=== PATIENT | female | born 1985 | race Caucasian/White ===

== ENCOUNTER 2017-03-09 12:39 | Inpatient (IN) | payer OTHER ==
[2017-03-09] MEDS ORDERED: Buffered Lidocaine 0.9% SYRIN* 5 ML/SYR SYRINGE ONE (18:44)
[2017-03-09 19:11] LABS: Hematocrit 31 % (35-47); Hemoglobin 10.6 g/dl (12.0-16.0); Mean Corpuscular HGB Conc 34 g/dl (31-36); Mean Corpuscular Hemoglobin 27 pg (27-31); Mean Corpuscular Volume 79 fL (80-97); Mean Platelet Volume 8 um3 (7.4-10.4); Red Blood Count 3.98 10^6/ul (4.0-5.4); Red Cell Distribution Width 13 % (10.5-15); White Blood Count 11.5 10^3/ul (3.5-10.8)
[2017-03-09] MEDS ORDERED: Oxytocin in LR* 20 UNITS/1,000 ML BAG IVPB SCH (23:00)
[2017-03-09] MEDS ORDERED: Oxytocin in LR* 20 UNITS/1,000 ML BAG IVPB ONE (23:09)
[2017-03-10] MEDS ORDERED: Dibucaine 1% 28.35 GM TUBE PR PRN (01:47)
[2017-03-10] MEDS ORDERED: Acetaminophen TAB* 325 MG PO PRN (01:47)
[2017-03-10] MEDS ORDERED: Glycerin ADULT SUPP PR PRN (01:47)
[2017-03-10] MEDS ORDERED: Measles, Mumps,Rubella VACC* 0.5 ML/VIAL SUBCUT ONE (01:47)
[2017-03-10] MEDS ORDERED: Witch Hazel PAD* JAR TOPICAL PRN (01:47)
[2017-03-10] MEDS: Ibuprofen TAB* 600 MG PO PRN ×3 (03:08→19:58)
[2017-03-10] MEDS: Docusate CAP* 100 MG PO SCH ×3 (08:44→20:34)
[2017-03-10] MEDS: Simethicone CHEW TAB* 80 MG PO SCH ×3 (08:45→17:30)
[2017-03-11] MEDS: Ibuprofen TAB* 600 MG PO PRN (07:26)
[2017-03-11 08:18] VITALS: BP 97/61
[2017-03-11 08:49] LABS: Hematocrit 35 % (35-47); Hemoglobin 11.4 g/dl (12.0-16.0); Mean Corpuscular HGB Conc 33 g/dl (31-36); Mean Corpuscular Hemoglobin 27 pg (27-31); Mean Corpuscular Volume 80 fL (80-97); Mean Platelet Volume 8 um3 (7.4-10.4); Red Cell Distribution Width 14 % (10.5-15); White Blood Count 9.9 10^3/ul (3.5-10.8)
[2017-03-11] MEDS ORDERED: Ferrous Gluconate TAB* 324 MG TAB PO SCH (09:00)
[2017-03-11] MEDS: Docusate CAP* 100 MG PO SCH (09:08)
[2017-03-11] MEDS ORDERED: Influenza VAC *QUAD* 2017-18* 0.5 ML SYRINGE IM ONE (09:55)
== END 2017-03-11 13:49 | disposition home or self-care (01) | DRG 560 ==
LOC: MCHOBOUT 12:39 → MCHOB 17:23
PROVIDERS: ADMIT Midwife; ATTEND Midwife
PROC: 4A1HX4Z Monitoring of Products of Conception, Cardiac Electrical Activity, External Approach (ICD-10-PCS; principal; 2017-03-09)
PROC: 10E0XZZ Delivery of Products of Conception, External Approach (ICD-10-PCS; 2017-03-09)
PROC: 10907ZC Drainage of Amniotic Fluid, Therapeutic from Products of Conception, Via Natural or Artificial Opening (ICD-10-PCS; 2017-03-09)
DX: O71.82 Other specified trauma to perineum and vulva (principal); Z88.2 Allergy status to sulfonamides; Z3A.39 39 weeks gestation of pregnancy; Z37.0 Single live birth
CPT/HCPCS: 36415; 85025; 86850; 86900; 86901; 90686; 90707; A9270-GY

== ENCOUNTER 2019-08-20 12:38 | Emergency (ER) | payer BC, OTHER ==
[2019-08-20] MEDS ORDERED: NS 0.9% 1000 ML** 1,000 ML IV ONE (12:46)
--- NOTE | 2019-08-20 12:52 | ED ---
Syncope/Near Syncope - HPI Summary HPI Summary: The patient is a 33 y/o F arriving via ambulance to [facility] with a cc of multiple syncopal episodes last night and lightheadedness now. She reports that she was feeling well yesterday until last night when she thought she heard her baby getting up so she got out of bed and then had a syncopal episode. During the episode, she hit the posterior head on hardwood floor. Throughout the night, she had two more syncopal episodes, as she was told by her . She also was very nauseous last night and into this morning. She went to her PCPs office this morning where they found her to by hypotensive. EMS reports VSS; normotensive, sinus bradycardia, BG 97. In the ED, the patient is suffering from a frontal and right parietal headache and lightheadedness but no nausea. Symptoms rated 5/10 in severity. PMHx: anemia. FHx: hypertension. Nonsmoker, no EtOH, no substance use. Medications reviewed. Allergies noted. Home Medications Medication Instructions Recorded Confirmed Type Ibuprofen TAB* [Motrin TAB* 600 MG] 600 mg PO Q6H PRN #0 tab 03/11/17 08/20/19 Rx Norethindrone [Deblitane] 0.35 mg PO DAILY 08/20/19 08/20/19 History Sertraline* [Zoloft*] 50 mg PO DAILY 08/20/19 08/20/19 History - History Of Current Complaint Hx Obtained From: Patient, EMS Onset/Duration: Lasting Hours, Other - no syncopal episose this morning although lightheadedness still present Timing: Frequency Of Episodes - 3 Context: Loss Of Consciousness Activity At Onset: At Rest Associated Head Trauma: Yes Aggravating Factor(s): Nothing Alleviating Factor(s): Nothing Associated Signs And Symptoms: Headache - frontal, parietal, Lightheadedness, Other - nausea (resolved) - Allergies/Home Medications Allergies/Adverse Reactions: Allergies Allergy/AdvReac Type Severity Reaction Status Date / Time Sulfa (Sulfonamide Allergy Hives/Diff. Verified 08/20/19 12:55 Antibiotics) Breathing/I tching Home Medications: Home Medications Ibuprofen TAB* [Motrin TAB* 600 MG] 600 mg PO Q6H PRN #0 tab 03/11/17 [Rx Confirmed 08/20/19] Norethindrone [Deblitane] 0.35 mg PO DAILY 08/20/19 [History Confirmed 08/20/19] Sertraline* [Zoloft*] 50 mg PO DAILY 08/20/19 [History Confirmed 08/20/19] PMH/Surg Hx/FS Hx/Imm Hx Endocrine/Hematology History: Reports: Hx Anemia - HX OF Denies: Hx Diabetes Cardiovascular History: Denies: Hx Hypertension History: Denies: Hx Renal Disease Sensory History: Reports: Hx Contacts or Glasses - GLASSES Denies: Hx Hearing Aid Opthamlomology History: Reports: Hx Contacts or Glasses - GLASSES - Surgical History Surgical History: Yes Surgery Procedure, Year, and Place: S/P D&C earlier this year 2015 Hx Anesthesia Reactions: No Infectious Disease History: Denies: Hx Clostridium Difficile, Hx Hepatitis, Hx Human Immunodeficiency Virus (HIV), Hx of Known/Suspected MRSA, Hx Shingles, Hx Tuberculosis, Hx Known/ Suspected VRE, Hx Known/Suspected VRSA, History Other Infectious Disease - Family History Known Family History: Positive: Hypertension - mother - Social History Alcohol Use: None Hx Substance Use: No Substance Use Type: Reports: None Hx Tobacco Use: No Smoking Status (MU): Never Smoked Tobacco Have You Smoked in the Last Year: No Review of Systems Positive: Nausea - resolved Neurological/Mental Status: Other - lightheadedness Positive: Headache - frontal, parietal, Syncope All Other Systems Reviewed And Are Negative: Yes Physical Exam - Summary Physical Exam Summary: Constitutional: Well-developed, Well-nourished, Alert. (-) Distressed Skin: Warm, Dry HENT: Tenderness over the right parietal scalp; Atraumatic Eyes: Conjunctiva normal Neck: Musculoskeletal ROM normal neck. (-) C-spine tenderness, (-) JVD, (-) Stridor, (-) Nuchal rigidity Cardio: Rhythm regular, rate normal, Heart sounds normal; Intact distal pulses; Radial pulses are 2+ and symmetric. (-) Murmur Pulmonary/Chest wall: Effort normal. (-) Respiratory distress, (-) Wheezes, (-) Rales Abd: Soft, (-) tenderness, (-) Distension, (-) Guarding, (-) Rebound Musculoskeletal: (-) Edema Lymph: (-) Cervical adenopathy Neuro: Alert, Oriented x3, GCS 15 Psych: Mood and affect Normal Triage Information Reviewed: Yes Vital Signs Reviewed: Yes - Anastasia Coma Scale Best Eye Response: 4 - Spontaneous Best Motor Response: 6 - Obeys Commands Best Verbal Response: 5 - Oriented Coma Scale Total: 15 Procedures - Sedation Patient Received Moderate/Deep Sedation with Procedure: No Diagnostics - Laboratory Result Diagrams: 08/20/19 12:56 08/20/19 12:56 Lab Statement: Any lab studies that have been ordered have been reviewed, and results considered in the medical decision making process. - CT Brain CT CT Interpretation Completed By: Radiologist Summary of CT Findings: Impression: 1. No acute intracranial abnormality. ED physician has reviewed this report. - EKG 1253 Cardiac Rate: NL - 70 BPM EKG Rhythm: Sinus Rhythm EKG Comparison: No Significant Change - Similar to previous EKG taken at PCP's office today. Summary of EKG Findings: An EKG at 1253 reveals normal sinus rhythm at rate of 70 BPM, T wave flattening in V2. No STEMI. Similar to previous EKG taken at PCP' s office today. ED physician has reviewed and interpreted this EKG. Re-Evaluation - Re-Evaluation First Eval Re-Evaluation Time: 13:55 Comment: Discussed results and plan for d/c Course/Dx Course Of Treatment: 33 y/o F p/w syncopal episode: Syncope. DDx: most likely initially orthostatic (rising out of bed). Seizure: no witnessed seizure activity, incontinence or h/o seizures to suggest seizure today. Hypoxia and hypoglycemia less likely in this patient with normal sats and BG. Cardiac issue : electrical (dysarrhythmias, brugada, WPW, long QT). Less likely given no evidence of drop attack, no palpitations, no EKG findings to predispose to arrhythmias. No CP, no STEMI on EKG. Reviewed EKG at PCP. Vessels: PE, dissection, AAA. Clinical picture inconsistent, no abd pain, no pulsatile mass, symmetric pulses, no risk factors of PE (Perc neg). Volume issue: dehydration from vomiting/diarrhea/decreased PO, sepsis, GI bleed, ruptured ectopic or bleeding AAA. No signs of recent illness to suggest infection, no e/o anemia by history or PE, neg preg test neg so unlikely ectopic. Neuro: No OCHOA, no personal or family h/o cerebral aneurysm, nml neuro exam, CT head negative. Also: vasovagal, drugs/meds, autonomic insufficiency - Diagnoses Provider Diagnoses: Syncope, Concussion - Physician Notifications Discussed Care of Patient With: Shae at PCP Time Discussed With Above Provider: 14:40 Instructed by Provider To: Other - I spoke with Shae at the patient's primary office, who wanted the patient to come in for repeated syncope and blood work. We discussed results, and she is comfortable with the patient being discharged. Discharge ED - Sign-Out/Discharge Documenting (check all that apply): Patient Departure - Patient will be discharged home. - Discharge Plan Condition: Stable Disposition: HOME Patient Education Materials: Syncope (DC), Concussion (ED) Referrals: Ramirez Carrillo MD [Medical Doctor] - 3 Days Additional Instructions: You were seen in the emergency department for passing out. Your head CT showed no abnormalities. Your lab results are unremarkable. Please drink lots of fluids. You can take Tylenol or motrin for pain. Please follow up with your primary care doctor in next 2-3 days and return to emergency department for worsening headaches, passing out, confusion or concerning symptoms. It was a pleasure taking care of you today. - Billing Disposition and Condition Condition: STABLE Disposition: Home - Attestation Statements Document Initiated by Lois: Yes Documenting Scribe: Batsheva Llamas Provider For Whom Lois is Documenting (Include Credential): Dr. Ramon Stewart MD Scribe Attestation: Batsheva Bui scribed for Dr. Ramon Stewart MD on 08/20/19 at 1523. Scribe Documentation Reviewed: Yes Provider Attestation: The documentation as recorded by the Batsheva newman accurately reflects the service I personally performed and the decisions made by me, Dr. Ramon Stewart MD Status of Scribe Document: Viewed
--- OUTSIDE RECORDS SUMMARY | 2019-08-20 13:10 | XMS REPORT | Continuity of Care Document ---
:1985 External Reference #:[id number] Author Name Lb Alvarenga MD Address [address] [place] [address] Care Team Providers Name Role Phone Lb Alvarenga MD - Family Care Team Information Exceptional Needs Teacher Medicine Problems Active Problems Provider Date Moderate recurrent major depression Laura Perez NP Onset: 10/17/2018 Anxiety state Laura Perez NP Onset: 10/17/2018 Social History Type Date Description Comments Sex Unknown ETOH Use Rare Tobacco Use Start: Unknown Patient has never smoked Recreational Drug Use Never Used Drugs Smoking Status Reviewed: 08/09/19 Patient has never smoked Exercise Type/Frequency Yoga 3-4 times a week Allergies, Adverse Reactions, Alerts Active Allergies Reaction Severity Comments Date Sulfa Difficulty breathing, Itching, rash 10/17/2018 Medications Active Medications SIG Qnty Indications Ordering Provider Date Sertraline HCL 1 by mouth 90tabs F41.9 Vidhya Elvia 10/17/2018 50mg every day Green, [employer] Tablets Deblitane 1 by mouth Unknown 0.35mg Tablets every day Immunizations Description No Information Available Vital Signs Date Vital Result Comment 08/09/2019 10:19am BP Systolic 80 mmHg BP Diastolic 50 mmHg Heart Rate 72 /min Body Temperature 98.4 F Height 61.5 inches 5'1.50" Weight 125.00 lb BMI (Body Mass Index) 23.2 kg/m2 01/15/2019 11:00am BP Systolic 110 mmHg BP Diastolic 50 mmHg Heart Rate 56 /min Body Temperature 98.1 F Respiratory Rate 16 /min Height 62 inches 5'2" Weight 126.38 lb BMI (Body Mass Index) 23.1 kg/m2 Results Description No Information Available Procedures Description No Information Available Medical Devices Description No Information Available Encounters Description No Information Available Assessments Date Code Description Provider 08/09/2019 Z00.00 Encounter for general adult medical Lb Alvarenga MD examination without abnormal findings Plan of Treatment Future Appointment(s):08/16/2019 8:30 am - Lb Alvarenga MD at [facility]08/09/2019 - Lb Alvarenga MDZ00.00 Encounter for general adult medical examination without abnormal findingsNew Labs:CBC Electronic-ALL [facility], Ordered: 08/09/19Comp Metabolic-ALL [facility], Ordered: 08/09/19Lipid Panel-[facility], Ordered: 08/09/19TS ([facility]/ [facility]), Ordered: 08/09/19AllComments:Medication Management Patient Understands medications she's taking? Yes No Are there Barriers to Adherence? Yes No Has the patient been asked about herbal supplements and therapies, and OTC meds? Yes No Functional Status Description No Information Available Mental Status Description No Information Available Referrals Description No Information Available
[2019-08-20 13:14] LABS: ABS Eosinophils 0.1 10^3/ul (0-0.6); ABS Lymphocytes 1.5 10^3/ul (1.0-4.8); ABS Monocytes 0.4 10^3/ul (0-0.8); ABS Neutrophils 4.1 10^3/ul (1.5-7.7); Eosinophil % 1.4 %; Hematocrit 39 % (35-47); Hemoglobin 13.4 g/dL (12.0-16.0); Lymphocyte % 24.5 %; Mean Corpuscular HGB Conc 35 g/dL (31-36); Mean Corpuscular Hemoglobin 30 pg (27-31); Mean Corpuscular Volume 88 fL (80-97); Mean Platelet Volume 8.1 fL (7.4-10.4); Platelet Count 254 10^3/uL (150-450); Red Blood Count 4.43 10^6 /uL (3.70-4.87); Red Cell Distribution Width 13 % (10-15); White Blood Count 6.1 10^3/uL (3.5-10.8)
[2019-08-20 13:47] LABS: HCG Pregnancy < 0.60 mIU/mL
[2019-08-20 13:48] LABS: ALT 10 U/L (7-52); AST 16 U/L (13-39); Albumin 4.6 g/dL (3.2-5.2); Albumin/Globulin Ratio 1.8 (1-3); Alkaline Phosphatase 37 U/L (34-104); Anion Gap 7 mmol/L (2-11); Blood Urea Nitrogen 15 mg/dL (6-24); CO2 Carbon Dioxide 27 mmol/L (22-32); Calcium 9.5 mg/dL (8.6-10.3); Chloride 105 mmol/L (101-111); EGFR African American 140.2 (>60); EGFR Non-African American 115.9 (>60); Globulin 2.5 g/dL (2-4); Glucose 83 mg/dL (70-100); Potassium 3.7 mmol/L (3.5-5.0); Sodium 139 mmol/L (135-145); Total Protein 7.1 g/dL (6.4-8.9)
[2019-08-20] MEDS ORDERED: Ketorolac INJ* 30 MG/ML 1 ML VIAL IV ONE (14:10)
[2019-08-20] MEDS ORDERED: Metoclopramide IV* 5 MG/ML 2 ML VIAL IV SLOW PU ONE (14:10)
[2019-08-20 14:19] VITALS: BP 111/67
== END 2019-08-20 14:05 | disposition home or self-care (01) ==
LOC: ED 12:38
DX: S06.0X1A Concussion with loss of consciousness of 30 minutes or less, initial encounter (principal); R55 Syncope and collapse; R51 Headache; R42 Dizziness and giddiness; W19.XXXA Unspecified fall, initial encounter; Y92.9 Unspecified place or not applicable; Z88.2 Allergy status to sulfonamides; Z79.899 Other long term (current) drug therapy
CPT/HCPCS: 36415; 70450; 80053; 84702; 85025; 93005; 96361; 96374; 96375; 99284; J1885; J2765

== ENCOUNTER 2022-02-21 16:32 | Inpatient (IN) ==
[2022-02-21] MEDS ORDERED: Labetalol IV 5 MG/ML 20 ml VIAL IV PUSH ONE ×2 (18:10→21:01)
[2022-02-21 18:20] LABS: Hematocrit 28 % (35-47); Hemoglobin 8.9 g/dL (12.0-16.0); Mean Corpuscular HGB Conc 32 g/dL (31-36); Mean Corpuscular Hemoglobin 24 pg (27-31); Mean Corpuscular Volume 74 fL (80-97); Mean Platelet Volume 8.2 fL (7.4-10.4); Platelet Count 315 10^3/uL (150-450); Red Blood Count 3.76 10^6 /uL (3.70-4.87); Red Cell Distribution Width 16 % (10-15)
[2022-02-21 18:35] LABS: ALT 37 U/L (7-52); Albumin 3.9 g/dL (3.2-5.2); Albumin/Globulin Ratio 1.3 (1-3); Alkaline Phosphatase 128 U/L (35-149); Blood Urea Nitrogen 10 mg/dL (6-24); CO2 Carbon Dioxide 23 mmol/L (22-32); Calcium 8.6 mg/dL (8.6-10.3); Chloride 105 mmol/L (101-111); Globulin 2.9 g/dL (2-4); Glucose 82 mg/dL (70-100); Sodium 139 mmol/L (135-145); Total Protein 6.8 g/dL (6.4-8.9); eGFR CKD-EPI 123.6 (>60)
[2022-02-21 18:37] LABS: Anion Gap 11 mmol/L (2-11)
[2022-02-21 19:53] LABS: Phosphorus 4.1 mg/dL (2.5-5.0); Potassium Redraw 4.1 mmol/L (3.5-5.0)
[2022-02-21] MEDS ORDERED: Calcium Gluconate 1 GM/10 ML VIAL (in Pyxis) IV PUSH PRN (20:15)
[2022-02-21] MEDS ORDERED: Magnesium Sulfate OB PREMIX 4 GM/100 ML BAG IV ONE (20:16)
[2022-02-21] MEDS ORDERED: Magnesium Sulfate OB PREMIX 40 GM/1,000 ML BAG IVPB SCH (21:00)
[2022-02-21] MEDS ORDERED: hydrALAZINE 20 mg/ml 1 ML Vial IV IV SLOW PU PRN (21:05)
[2022-02-21] MEDS ORDERED: Ondansetron 4 mg VIAL 2 MG/ML 2 ml VIAL IV PRN (22:32)
[2022-02-21 22:39] LABS: ABS Eosinophils 0.2 10^3/ul (0-0.6); ABS Lymphocytes 1.8 10^3/ul (1.0-4.8); ABS Monocytes 0.5 10^3/ul (0-0.8); ABS Neutrophils 4.5 10^3/ul (1.5-7.7); Eosinophil % 2.4 %; Lymphocyte % 25.7 %; Nucleated Red Blood Cells % 0.1
[2022-02-21 22:40] LABS: Anisocytosis 1+; Microcytosis 2+; Polychromasia 1+
[2022-02-22 00:16] LABS: Urine Appearance Clear; Urine Bilirubin Negative (Negative); Urine Color Yellow; Urine Glucose Negative (Negative); Urine Ketones Negative (Negative); Urine Nitrite Negative (Negative); Urine Protein Negative (Negative); Urine Urobilinogen 0.2 (Negative) (Negative)
[2022-02-22 00:32] LABS: Urine Bacteria Absent (Absent); Urine Red Blood Cell 1+(3-5/hpf) (Absent); Urine Squamous Epithelial Cell Present (Absent); Urine White Blood Cell Trace(0-5/hpf) (Absent)
[2022-02-22 05:18] LABS: Albumin 3.7 g/dL (3.2-5.2); Albumin/Globulin Ratio 1.4 (1-3); Direct Bilirubin 0.1 mg/dL (0.03-0.18); Globulin 2.6 g/dL (2-4); Indirect Bilirubin 0.7 mg/dL (0.3-1.0); Potassium 3.7 mmol/L (3.5-5.0); Total Bilirubin 0.8 mg/dL (0.2-1.0); Total Protein 6.3 g/dL (6.4-8.9)
[2022-02-22 05:19] LABS: Calcium 8.3 mg/dL (8.6-10.3); Magnesium 4.3 mg/dL (1.9-2.7); Potassium 3.7 mmol/L (3.5-5.0)
[2022-02-22 11:33] LABS: TSH Ultra Thyroid Stim Horm 2.47 mcIU/mL (0.34-5.60)
[2022-02-23 09:21] VITALS: BP 125/77
== END 2022-02-23 13:26 | disposition home or self-care (01) | DRG 561 ==
LOC: ED 16:32 → EDHOLD 20:03 → ICU 21:47 → MCHOB 02-22 17:48
PROVIDERS: ADMIT Internal Medicine; ATTEND Obstetrics & Gynecology